=== PATIENT | female | born 2000 | race Caucasian/White ===

== ENCOUNTER 2021-11-16 14:40 | Emergency (ER) | payer BC ==
[~2021-11-16] VITALS: Ht 162.6 cm; Wt 50.0 kg
[2021-11-16 15:12] VITALS: TEMP 99.2
[2021-11-16 15:47] LABS: COLLECTION METHOD CLEAN CATCH
[2021-11-16 15:52] LABS: BASO # 0.1 K/mm3 (0.0-0.2); BASO % 0.6 % (0.0-2.0); EOS # 0.2 K/mm3 (0.0-0.7); EOS % 2.2 % (0.0-4.0); GRAN # 4.8 K/mm3 (1.4-6.5); GRAN % 62.8 % (42.2-75.2); HEMATOCRIT 40.1 % (35.0-45.0); HEMOGLOBIN 13.1 g/dl (12.0-15.0); LYMPH # 2.2 K/mm3 (1.2-3.4); LYMPH % 28.5 % (20.0-51.0); MEAN CELL VOLUME 94 fl (80.0-95.0); MEAN CORPUSCULAR HEMOGLOBIN 31 pg (26-32); MEAN CORPUSCULAR HGB CONC 33 g/dl (33.0-37.0); MEAN PLATELET VOLUME 10.6 fl (7.4-10.4); MONO # 0.4 K/mm3 (0.1-0.6); MONO % 5.6 % (1.7-9.3); PLATELET COUNT 283 K/mm3 (130-400); RED BLOOD COUNT 4.29 M/mm3 (4.10-5.30); REDCELL DISTRIBUTION WIDTH-CV 11.9 % (11.5-14.5)
[2021-11-16 15:56] LABS: MUCOUS Present (NOT PRESENT); PH 6 (5-8); URINE APPEARANCE Hazy (CLEAR/HAZY); URINE BACTERIA None Seen /hpf (NONE SEEN); URINE BILIRUBIN Negative (NEGATIVE); URINE BLOOD Negative (NEGATIVE); URINE COLOR Yellow (YELLOW); URINE GLUCOSE Negative (NEGATIVE); URINE KETONE Trace (NEGATIVE); URINE LEUKOCYTE ESTERASE Negative (NEGATIVE); URINE NITRATE Negative (NEGATIVE); URINE PROTEIN(semi-quant) 1+ (NEGATIVE); URINE RBC 0-2 /hpf (0-2); URINE UROBILINOGEN Negative (NEGATIVE)
[2021-11-16 16:13] LABS: ALBUMIN 4.5 gm/dL (3.5-5.0); BILIRUBIN,TOTAL 0.4 mg/dL (0.2-1.2); CALCIUM 9.4 mg/dL (8.4-10.2); CREATININE, serum 0.75 mg/dL (0.57-1.11); POTASSIUM 3.6 mmol/L (3.5-4.5); TOTAL PROTEIN 7.3 gm/dL (6.2-8.1)
[2021-11-16] MEDS ORDERED: ZOFRAN ODT4 MG PO (16:57)
[2021-11-16 17:16] VITALS: BP 98/56; PULSE 71
== END 2021-11-16 17:15 | disposition home or self-care (01) ==
LOC: COL.ER 14:40
PROVIDERS: Emergency Medicine
DX: R10.2 Pelvic and perineal pain (principal); Z32.02 Encounter for pregnancy test, result negative; Z20.822 Contact with and (suspected) exposure to COVID-19